=== PATIENT | male | born 1945 | race Caucasian/White ===

== ENCOUNTER 2016-08-09 09:14 | Emergency (ER) | payer MEDICARE, BC ==
[2016-08-09] MEDS ORDERED: Labetalol IV* 5 MG/ML 20 ML VIAL IV PUSH ONE (09:55)
[2016-08-09 10:06] LABS: Hematocrit 47 % (42-52); Hemoglobin 15.8 g/dl (14.0-18.0); Mean Corpuscular HGB Conc 33 g/dl (31-36); Mean Corpuscular Hemoglobin 33 pg (27-31); Mean Corpuscular Volume 98 fL (80-94); Mean Platelet Volume 9 um3 (7.4-10.4); Red Blood Count 4.82 10^6/ul (4.0-5.4); Red Cell Distribution Width 14 % (10.5-15); White Blood Count 3.6 10^3/ul (3.5-10.8)
[2016-08-09 10:17] LABS: Albumin 4.1 g/dL (3.2-5.2); BUN/Creatinine Ratio 12.6 (8-20); Calcium 9.3 mg/dL (8.6-10.3); EGFR African American 83.7 (>60); EGFR Non-African American 65.1 (>60); Total Bilirubin 1.4 mg/dL (0.2-1.0); Total Protein 7.1 g/dL (6.4-8.9)
[2016-08-09 10:20] LABS: Troponin I 0.01 ng/mL (<0.04)
--- NOTE | 2016-08-09 10:43 | RAD ---
INDICATION: Hypertension and headache COMPARISON: None. TECHNIQUE: Contiguous axial sections of the brain were obtained from the skull base to the vertex without contrast. FINDINGS: The ventricles, cisterns and sulci exhibit symmetric involutional changes appropriate for the patient's age. There is mild periventricular and subcortical white matter hypoattenuation most consistent with chronic microvascular disease.. The ortega-white matter differentiation is adequately maintained and there is no sulcal effacement. No significant focal abnormality or mass effect is present. There is no evidence for intracranial hemorrhage. No significant focal osseous abnormality is present. The visualized portion of the paranasal sinuses and mastoid air cells appear clear. IMPRESSION: No CT evidence of acute intracranial abnormality.
--- NOTE | 2016-08-09 10:47 | RAD ---
INDICATION: Hypertension COMPARISON: CT of the chest December 17, 2014 TECHNIQUE: Single AP portable view of the chest was obtained. FINDINGS: Image quality is compromised due to the relative inferiority of a portable chest x-ray. Postsurgical changes include surgical clips overlying the left axilla, a left upper chest cardiac pacemaker with 2 leads overlying the heart and sternotomy wires. The heart and mediastinum exhibit normal size and contour. In the AP view the lungs appear hyperaerated. The lungs are otherwise clear. There is no evidence of a large pleural effusion. Visualized bones are normal for the patient's age. IMPRESSION: Stable chronic findings as described above without radiographic evidence of acute cardiopulmonary abnormality.
[2016-08-09 11:18] LABS: Digoxin 1.8 ng/ml (0.8-2.0)
[2016-08-09] MEDS ORDERED: amLODIPine TAB* 5 MG PO ONE (12:17)
[2016-08-09 12:53] VITALS: BP 166/90
--- NOTE | 2016-08-09 18:31 | ED ---
I, Ravi,Gina, scribed for Gómez Frausto MD on 08/09/16 at 0955 . Hypertension - HPI Summary HPI Summary: This 71 y/o male presents to ED for hypertensive episode this morning. Pt reports systolic blood pressure of 240 this morning, and he is noted with 183 systolic at time of initial evaluation. Pt recently had his lisinopril increased from 10 mg qd to 20 mg bid in June 2016. Positive mild CASH. Negative calf edema. Pt recently traveled from [place] to [facility]. PMHx is significant for HTN, cardiac tumor s/p removal, afib with pacemaker in place, and renal agenesis. He is currently on digoxin, warfarin, sotalol, furosemide, and allopurinol. - History of Current Complaint Chief Complaint: EDHypertension Stated Complaint: HIGH BP Hx Obtained From: Patient Onset/Duration: Started Hours Ago, Atraumatic, Still Present Timing: Constant Aggravating Factor(s): Nothing Alleviating Factor(s): Nothing Associated Signs & Symptoms: Headaches - Allergies/Home Medications Allergies/Adverse Reactions: Allergies Allergy/AdvReac Type Severity Reaction Status Date / Time No Known Allergies Allergy Verified 08/09/16 09:15 Home Medications: Home Medications Furosemide TAB* [Lasix TAB*] 20 mg PO DAILY 08/09/16 [History Confirmed 08/09/16 ] Potassium Chlor TAB* [Klor Con ER TAB*] 10 meq PO DAILY 08/09/16 [History Confirmed 08/09/16] PMH/Surg Hx/FS Hx/Imm Hx Cardiovascular History: Reports: Hx Congestive Heart Failure - dx last 05/2013, Hx Hypertension, Hx Pacemaker/ICD - [employer] [place] IN [place], 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 , 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, 1994, Other Cardiovascular Problems/Disorders - A FIB Respiratory History: Denies: Other Respiratory Problems/Disorders GI History: Reports: Hx Gastroesophageal Reflux Disease, Hx Ulcer - LONG AGO Denies: Other GI Disorders History: Reports: Hx Renal Disease - congenital 1 kidney Denies: Other Problems/Disorders Musculoskeletal History: Reports: Hx Arthritis - ALL OVER, Other Musculoskeletal History - see surgeries Sensory History: Reports: Hx Cataracts - JONO, Hx Contacts or Glasses - GLASSES, Hx Glaucoma Denies: Hx Hearing Aid Opthamlomology History: Reports: Hx Cataracts - JONO, Hx Contacts or Glasses - GLASSES, Hx Glaucoma Neurological History: Reports: Hx Migraine - IN THE PAST Denies: Other Neuro Impairments/Disorders - Surgical History Surgery Procedure, Year, and Place: benign cardiac tumor 1998, exploratory left lung 1997,benign mass neck, right hip and right leg fx. pacemaker, Hx Anesthesia Reactions: Yes - WENT INTO [facility]F DURING SURGERY Infectious Disease History: No Infectious Disease History: Denies: Traveled Outside the [place] in Last 30 Days - Family History Known Family History: Negative: Other - advserse - Social History Alcohol Use: Daily Alcohol Amount: 4 BEERS PER DAY Hx Substance Use: No Substance Use Type: Reports: None Hx Tobacco Use: Yes Smoking Status (MU): Former Smoker Amount Used/How Often: 2-3 PACKS A DAY Have You Smoked in the Last Year: No Review of Systems Negative: Fever Positive: Other - Positive hypertensive episode, still present. Negative: Chest Pain Positive: Headache All Other Systems Reviewed And Are Negative: Yes Physical Exam - Summary Physical Exam Summary: The patient is well-nourished in no acute distress and in no acute pain. The skin is warm and dry and skin color reflects adequate perfusion. HEENT: The head is normocephalic and atraumatic. The pupils are equal and reactive. The conjunctivae are clear and without drainage. Nares are patent and without drainage. Mouth reveals moist mucous membranes and the throat is without erythema and exudate. The external ears are intact. The ear canals are patent and without drainage. The tympanic membranes are intact. Neck is supple with full range of motion and non-tender. There are no carotid bruits. There is no neck vein distension. Respiratory: Chest is non-tender. Lungs are clear to auscultation and breath sounds are symmetrical and equal. No wheezing. Cardiovascular: Bradycardic. There is no murmur or rub auscultated. There is no peripheral edema and pulses are symmetrical and equal. Abdomen: The abdomen is soft and non-tender. There are normal bowel sounds heard in all four quadrants and there is no organomegaly palpated. Musculoskeletal: There is no back pain noted. Extremities are non-tender with full range of motion. There is good capillary refill. There is slight peripheral edema or calf tenderness elicited. Neurological: Patient is alert and oriented to person, place and time. The patient has symmetrical motor strength in all four extremities. Cranial nerves are grossly intact. Deep tendon reflexes are symmetrical and equal in all four extremities. Psychiatric: The patient has an appropriate affect and does not exhibit any anxiety or depression. Triage Information Reviewed: Yes Vital Signs On Initial Exam: Initial Vitals Temp Pulse Resp BP Pulse Ox 97.2 F 59 16 225/100 98 08/09/16 09:17 08/09/16 09:17 08/09/16 09:17 08/09/16 09:17 08/09/16 09:17 Vital Signs Reviewed: Yes - [place] Coma Scale Coma Scale Total: 15 Diagnostics - Vital Signs Vital Signs Temp Pulse Resp BP Pulse Ox 08/09/16 09:17 97.2 F 59 16 225/100 98 - Laboratory Lab Results: Lab Results 08/09/16 08/09/16 08/09/16 Range/Units 09:45 09:45 09:45 WBC 3.6 (3.5-10.8) 10^3/ul RBC 4.82 (4.0-5.4) 10^6/ul Hgb 15.8 (14.0-18.0) g/dl Hct 47 (42-52) % MCV 98 H (80-94) fL MCH 33 H (27-31) pg MCHC 33 (31-36) g/dl RDW 14 (10.5-15) % Plt Count 109 L (150-450) 10^3/ul MPV 9 (7.4-10.4) um3 Neut % (Auto) 63.4 (38-83) % Lymph % (Auto) 22.5 L (25-47) % [place] % (Auto) 10.6 H (1-9) % Eos % (Auto) 3.2 (0-6) % Baso % (Auto) 0.3 (0-2) % Absolute Neuts (auto) 2.3 (1.5-7.7) 10^3/ul Absolute Lymphs (auto) 0.8 L (1.0-4.8) 10^3/ul Absolute Monos (auto) 0.4 (0-0.8) 10^3/ul Absolute Eos (auto) 0.1 (0-0.6) 10^3/ul Absolute Basos (auto) 0 (0-0.2) 10^3/ul Absolute Nucleated RBC 0 10^3/ul Nucleated RBC % 0.1 INR (Anticoag Therapy) (0.89-1.11) APTT (26.0-36.3) seconds Sodium 139 (133-145) mmol/L Potassium 4.0 (3.5-5.0) mmol/L Chloride 102 (101-111) mmol/L Carbon Dioxide 31 (22-32) mmol/L Anion Gap 6 (2-11) mmol/L BUN 14 (6-24) mg/dL Creatinine 1.11 (0.67-1.17) mg/dL Est GFR ( Amer) 83.7 (>60) Est GFR (Non-Af Amer) 65.1 (>60) BUN/Creatinine Ratio 12.6 (8-20) Glucose 121 H (70-100) mg/dL Lactic Acid 0.9 (0.5-2.0) mmol/L Calcium 9.3 (8.6-10.3) mg/dL Total Bilirubin 1.40 H (0.2-1.0) mg/dL AST 22 (13-39) U/L ALT 17 (7-52) U/L Alkaline Phosphatase 60 (34-104) U/L Troponin I 0.01 (<0.04) ng/mL B-Natriuretic Peptide ( - 100) pg/mL Total Protein 7.1 (6.4-8.9) g/dL Albumin 4.1 (3.2-5.2) g/dL Globulin 3.0 (2-4) g/dL Albumin/Globulin Ratio 1.4 (1-3) Digoxin 1.8 (0.8-2.0) ng/ml 08/09/16 08/09/16 Range/Units 09:45 09:45 WBC (3.5-10.8) 10^3/ul RBC (4.0-5.4) 10^6/ul Hgb (14.0-18.0) g/dl Hct (42-52) % MCV (80-94) fL MCH (27-31) pg MCHC (31-36) g/dl RDW (10.5-15) % Plt Count (150-450) 10^3/ul MPV (7.4-10.4) um3 Neut % (Auto) (38-83) % Lymph % (Auto) (25-47) % King[place] % (Auto) (1-9) % Eos % (Auto) (0-6) % Baso % (Auto) (0-2) % Absolute Neuts (auto) (1.5-7.7) 10^3/ul Absolute Lymphs (auto) (1.0-4.8) 10^3/ul Absolute Monos (auto) (0-0.8) 10^3/ul Absolute Eos (auto) (0-0.6) 10^3/ul Absolute Basos (auto) (0-0.2) 10^3/ul Absolute Nucleated RBC 10^3/ul Nucleated RBC % INR (Anticoag Therapy) 2.13 H (0.89-1.11) APTT 42.9 H (26.0-36.3) seconds Sodium (133-145) mmol/L Potassium (3.5-5.0) mmol/L Chloride (101-111) mmol/L Carbon Dioxide (22-32) mmol/L Anion Gap (2-11) mmol/L BUN (6-24) mg/dL Creatinine (0.67-1.17) mg/dL Est GFR ( Amer) (>60) Est GFR (Non-Af Amer) (>60) BUN/Creatinine Ratio (8-20) Glucose (70-100) mg/dL Lactic Acid (0.5-2.0) mmol/L Calcium (8.6-10.3) mg/dL Total Bilirubin (0.2-1.0) mg/dL AST (13-39) U/L ALT (7-52) U/L Alkaline Phosphatase (34-104) U/L Troponin I (<0.04) ng/mL B-Natriuretic Peptide 72 ( - 100) pg/mL Total Protein (6.4-8.9) g/dL Albumin (3.2-5.2) g/dL Globulin (2-4) g/dL Albumin/Globulin Ratio (1-3) Digoxin (0.8-2.0) ng/ml Result Diagrams: 08/09/16 09:45 08/09/16 09:45 Lab Statement: Any lab studies that have been ordered have been reviewed, and results considered in the medical decision making process. - Radiology CXR Xray Interpretation: No Acute Changes - Stable chronic findings as described above (Postsurgical changes include surgical clips overlying the left axilla, a left upper chest cardiac pacemaker with 2 leads overlying the heart and sternotomy wires) without radiographic evidence of acute cardiopulmonary abnormality. Radiology Interpretation Completed By: Radiologist - CT Brain CT Interpretation: No Acute Changes CT Interpretation Completed By: Radiologist - EKG 0926 Cardiac Rate: Other Rate - atrial paced rhythm at 60 bpm Re-Evaluation - Re-Evaluation First Eval Re-Evaluation Time: 12:12 Comment: Bloodworks and imaging results are discussed with pt and present at bedside. Blood pressure improved. CASH is resolved. Admission was offered to pt in order to get the BP under control, but pt expresses desire to go home. Hypertension Course/Dx - Course Assessment/Plan: This 71 y/o male presents to ED for acute hypertensive episode this morning. PMHx is signficant for known HTN. Pt recently had his lisinopril dose increased from 10 mg qd to 20 mg bid. Pt was noted with blood pressure of 183 systolic pressure at time of initial evaluation and was symptomatically treated with labetalol. Pt also c/o mild CASH. CXR and CT Brain were indicated normal. Blood work was wnl with total bilirubin of 1.40 and digoxin of 1.8. Pt was discharged with outpatient f/u. pt. is to continue with Lisinopril 20mg bid and lasix 20 mg daily. norvasc 10 mg po daily was added to regimine. - Diagnoses Differential Diagnosis/HQI PQRI: Angina, Cerebral Bleed, Hypertensive Urgency, Renal Disease Provider Diagnoses: Hypertensive urgency - Critical Care Time Critical Care Time: 30-74 min Discharge - Discharge Plan Condition: Stable Disposition: HOME Prescriptions: Amlodipine Besylate [Norvasc 10 mg tab] 10 mg PO DAILY #30 tab Patient Education Materials: Hypertension (ED), Amlodipine (By mouth) Referrals: Jody Delacruz MD [Medical Doctor] - 2 Days Additional Instructions: Please continue with your furosemide and lisinopril as instructed. The documentation as recorded by the Ravi crawford Soohyun accurately reflects the service I personally performed and the decisions made by me, Gómez Frausto MD.
== END 2016-08-09 12:53 | disposition home or self-care (01) ==
LOC: ED 09:14
DX: I16.0 Hypertensive urgency (principal); R51 Headache; Z87.891 Personal history of nicotine dependence
CPT/HCPCS: 36415; 70450; 71010; 80053; 80162; 83605; 83880; 84484; 85025; 85610; 85730; 93005; 96374; 99283; A9270-GY

== ENCOUNTER 2016-09-02 16:41 | Observation (INO) | payer MEDICARE, BC ==
--- NOTE | 2016-09-02 17:41 | RAD ---
INDICATION: Chest pain COMPARISON: Chest x-ray August 09, 2016 TECHNIQUE: An AP portable view obtained at 10 1040 hours is submitted. FINDINGS: Bones/Soft Tissues: There are no acute bony findings. There is left-sided cardiac pacemaker. There are sternotomy. Cardiomediastinal: The cardiomediastinal silhouette is normal. Lungs: There are no acute infiltrates. There is hyperinflation with mild chronic interstitial changes. Pleura: There are no pleural effusions. Other: None IMPRESSION: NO ACTIVE DISEASE. HYPERINFLATION. POSTSURGICAL CHANGE
[2016-09-02 17:56] LABS: ALT 20 U/L (7-52); Albumin 4.9 g/dL (3.2-5.2); Alkaline Phosphatase 76 U/L (34-104); BUN/Creatinine Ratio 13.5 (8-20); Blood Urea Nitrogen 18 mg/dL (6-24); C Reactive Protein 21.72 mg/L (< 5.00); CO2 Carbon Dioxide 30 mmol/L (22-32); Calcium 10.1 mg/dL (8.6-10.3); Chloride 101 mmol/L (101-111); Creatine Kinase 70 U/L (10-223); EGFR Non-African American 52.9 (>60); Globulin 3.8 g/dL (2-4); Glucose 94 mg/dL (70-100); Lipase 247 U/L (11.0-82.0); Sodium 138 mmol/L (133-145); Total Protein 8.7 g/dL (6.4-8.9)
[2016-09-02 17:57] LABS: Troponin I 0.01 ng/mL (<0.04)
[2016-09-02 18:15] LABS: TSH (Thyroid Stimulating Horm) 2.25 mcIU/mL (0.34-5.60)
--- NOTE | 2016-09-02 18:24 | ADMNOTE ---
Subjective Date of Service: 09/02/16 Interval History: ADMISSION HISTORY AND PHYSICAL EXAM: Allergies Allergy/AdvReac Type Severity Reaction Status Date / Time No Known Allergies Allergy Verified 08/09/16 09:15 Home Medications Medication Instructions Recorded Confirmed Type Digoxin TAB* 125 mcg PO DAILY 08/03/13 08/09/16 History Lisinopril TAB* 10 mg PO BID 08/03/13 08/09/16 History Sotalol TAB* 120 mg PO BID 08/03/13 08/09/16 History Travatan Z 0.004% OPTH (NF) 1 drop BOTH EYES BEDTIME 08/03/13 08/09/16 History Warfarin TAB(*) 3 mg PO DAILY 08/03/13 08/09/16 History Allopurinol TAB* 300 mg PO DAILY 01/11/14 08/09/16 History Amlodipine Besylate [Norvasc 10 mg 10 mg PO DAILY #30 tab 08/09/16 Rx tab] Furosemide TAB* [Lasix TAB*] 20 mg PO DAILY 08/09/16 08/09/16 History Potassium Chlor TAB* [Klor Con ER 10 meq PO DAILY 08/09/16 08/09/16 History TAB*] HPI: The patient has had chest pain for 2-3 months. It seems to be very positional. 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 He just got her from [place]. When he rode a bicycle in [place] he did not get chest pain. 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 Quit smoking 13 yrs ago. 2-4 alcoholic drinks per day 2 children. Lives with his who is his SDM. 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 Kumar, . Review of Systems - Measurements Intake and Output: Intake and Output Last 24 Hours 08/31/16 09/01/16 09/02/16 09/03/16 06:59 06:59 06:59 06:59 Weight 181 lb - Review of Systems Constitutional Symptoms: Negative: Weight Gain, Weight Loss, Weakness, Fatigue, Fever, Night Sweats, Unexplained Falls, Other Dermatology: Positive: Normal HEENT: Positive: Normal Eyes: Positive: Glaucoma Thyroid: Positive: Normal Pulmonary: Positive: Normal Cardiology: Positive: Chest Pain Gastroenterology: Positive: Normal Genital - Urinary: Positive: Normal Musculoskeletal: Negative: Joint Pain, Joint Stiffness, Arthritis, Osteoporosis, Low Back Pain , Sciatica, Joint Deformities, Kyphoscoliosis, Other Endocrinology: Positive: Normal Hematologic/Lymphatic: Negative: Anemia, Easy Brusing, Hx Leukemia, Hx Lymphoma, Use of Anticoagulant, Use of Antiplatelet Drugs, Other Neurology: Positive: Normal Psychiatry: Positive: Normal Allergic/Immunologic: Negative: Hx Anaphylaxis, Hx Angioedema, Hx Environmental, Hx Seasonal, Athsma, Hx HIV, Immunocompromise, Swollen Glands LymphNodes, Other Objective Active Medications: Sodium Chloride (Ns 0.9% 1000 Ml*) 1,000 mls @ 150 mls/hr IV PER RATE JED Vital Signs 09/02/16 09/02/16 16:48 17:20 Temperature 97.6 F 97.7 F Pulse Rate 60 60 Respiratory 18 16 Rate Blood Pressure 157/66 145/63 (mmHg) O2 Sat by Pulse 100 97 Oximetry Oxygen Devices in Use Now: Nasal Cannula Appearance: Alert, partly up on ED stretcher. In good spirits. Looks comfortable. Eyes: No Scleral Icterus, - - mod erythema both eyes, pt states due to eye drops and is chronic. Ears/Nose/Mouth/Throat: Clear Oropharnyx, Mucous Membranes Moist Neck: No Thyroid Enlargement, Masses, - - large jugular veins BL when talking. Respiratory: Symmetrical Chest Expansion and Respiratory Effort, Clear to Auscultation, Clear to Percussion Cardiovascular: NL Sounds; No Murmurs; No JVD, RRR, No Edema, - Abdominal: NL Sounds; No Tenderness; No Distention, No Hepatosplenomegaly, - Extremities: No Edema, No Clubbing, Cyanosis, - Skin: No Rash or Ulcers, No Nodules or Sclerosis, - Neurological: Alert and Oriented x 3, NL Sensation Result Diagrams: 09/02/16 18:30 09/02/16 18:30 Assess/Plan/Problems-Billing Assessment: - Patient Problems (1) Chest pain Current Visit: Yes Status: Acute Code(s): R07.9 - CHEST PAIN, UNSPECIFIED SNOMED Code(s): 20909958 Comment: Second troponin wnl. MICK negative. CT chest showed atelectasis and scarring SHARLENE, stable density R base. Discussed with Dr. Cantu. (2) Atrial fibrillation Current Visit: Yes Status: Acute Code(s): I48.91 - UNSPECIFIED ATRIAL FIBRILLATION SNOMED Code(s): 81011123 Comment: Continue sotalol. Resume warfarin. (3) Cancer Current Visit: Yes Status: Acute Code(s): C80.1 - MALIGNANT (PRIMARY) NEOPLASM, UNSPECIFIED SNOMED Code(s): 505065322 Comment: Dr. Kumar's office fax'e me the path reports from his L breast bx and L sentinel node resection. 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 Pt advised to call Dr. Dalton for appt. He has seen Dr. Dalton in past, ? malignancy, had gamma knife tx, PET scans. (4) Glaucoma Current Visit: Yes Status: Acute Code(s): H40.9 - UNSPECIFIED GLAUCOMA SNOMED Code(s): 11046033 Comment: Continue home eye drops. (5) Solitary kidney, congenital Current Visit: Yes Status: Acute Code(s): Q60.0 - RENAL AGENESIS, UNILATERAL SNOMED Code(s): 33362250 Comment: Dx noted.
[2016-09-02 18:38] LABS: Hematocrit 53 % (42-52); Hemoglobin 17.6 g/dl (14.0-18.0); Mean Corpuscular HGB Conc 34 g/dl (31-36); Mean Corpuscular Hemoglobin 33 pg (27-31); Mean Corpuscular Volume 99 fL (80-94); Mean Platelet Volume 9 um3 (7.4-10.4); Red Blood Count 5.32 10^6/ul (4.0-5.4); Red Cell Distribution Width 15 % (10.5-15); White Blood Count 6.8 10^3/ul (3.5-10.8)
[2016-09-02 20:41] LABS: Urine Bacteria Absent (Absent); Urine Bilirubin Negative (Negative); Urine Glucose Negative (Negative); Urine Nitrite Negative (Negative)
[2016-09-02] MEDS ORDERED: Latanoprost 0.005%* 2.5 ml BTL BOTH EYES SCH (21:00)
[2016-09-02] MEDS: Lisinopril TAB* 10 MG PO SCH (23:50)
[2016-09-02] MEDS: Brimonidine P 0.15%(NF) OPH SOL 5 ML BTL BOTH EYES SCH (23:54)
[2016-09-03] MEDS: NS 0.9% 1000 ML* 1,000 ML IV SCH ×2 (00:36→07:20)
[2016-09-03] MEDS ORDERED: Potassium Chlor TAB* 10 MEQ TAB.ER PO SCH (08:30)
[2016-09-03] MEDS ORDERED: Digoxin TAB* 0.125 MG PO SCH (09:00)
[2016-09-03] MEDS ORDERED: Allopurinol TAB* 300 MG PO SCH (09:00)
[2016-09-03] MEDS ORDERED: Sotalol TAB* 80 MG PO SCH (09:00)
[2016-09-03] MEDS ORDERED: Furosemide TAB* 20 MG PO SCH (09:00)
[2016-09-03] MEDS ORDERED: Iodixanol* (CONTRAST) 320 MG/ML 100 ML SDV IV ONE (11:12)
[2016-09-03] MEDS: Brimonidine P 0.15%(NF) OPH SOL 5 ML BTL BOTH EYES SCH ×2 (11:14→14:21)
--- NOTE | 2016-09-03 12:01 | RAD ---
HISTORY: Chest pain, history of atrial myxoma COMPARISONS: December 17, 2014 TECHNIQUE: Multiple contiguous axial CT scans of the chest were obtained with and without intravenous contrast. Coronal and sagittal multiplanar reformations are also submitted for review. FINDINGS: NECK AND THYROID: The lower neck and thyroid are unremarkable. CHEST WALL: A left-sided pacemaker is noted. There is post surgical change to the left axilla HEART AND PERICARDIUM: The heart is unremarkable. The atrial myxoma noted in history is not evident on the current examination. AORTA AND PULMONARY VASCULATURE: The aorta and pulmonary vasculature are normal. MEDIASTINUM: There is no mediastinal lymphadenopathy by size criteria. PRETTY: There is no hilar lymphadenopathy by size criteria. AIRWAY AND ESOPHAGUS: The airway is unremarkable, without endobronchial filling defect. The esophagus is grossly normal. LUNG PARENCHYMA: There is persistent linear opacification of the left upper lobe which likely reflects further atelectasis and pleural parenchymal scarring. There is a stable rounded density of the right lung base that may represent rounded atelectasis. PLEURA: No pleural abnormalities are noted. UPPER ABDOMEN: The upper abdomen is unremarkable. BONES AND SOFT TISSUES: Degenerative changes are noted. The patient is status post median sternotomy. OTHER: None. IMPRESSION: 1. PROGRESSIVE ATELECTASIS AND PLEUROPARENCHYMAL SCARRING OF THE LEFT UPPER LOBE. 2. STABLE ROUNDED DENSITY OF THE RIGHT LUNG BASE WHICH MAY REPRESENT ROUNDED ATELECTASIS
--- NOTE | 2016-09-03 12:25 | CONS ---
CC: Dr. Akers, Hospitalist Service; Dr. Cantu; Dr. Delacruz CARDIOLOGY CONSULT: DATE OF CONSULT: 09/03/16 PRIMARY CARE PHYSICIAN: Dr. Delacruz. HISTORY OF PRESENT ILLNESS: I was asked by the Hospitalist Service to see this 71- year-old male kavitha denise who had a history of myxoma in 1994, he had surgery done in [place]. He had a history of at rial fibrillation, permanent pacemaker implantation, done in [place]. He has been on Coumadin and a lso sotalol. The patient had full cardiac evaluation in [place] before he came here for his [facility] including chemical nuclear stress test, was told "normal." A transthoracic echocardiogram, I do not have that immediately available to me. He had been having atypical vague symptoms of some ches t pain, shortness of breath, positional in nature, pleuritic, and some musculoskeletal components. Kale lambert is very active bicycling in [place] without any limiting symptom according to him. He gives no fe issa, no nausea, no vomiting, no hematochezia, no skin rash, no abdominal pain, no syncope, no swelli ng of the lower extremities, no orthopnea, no PND is appreciated. He gives no history of diabetes m ellitus. He does have a history of hypertension, he is on medical treatment for that. He gives no history of hyperlipidemia. He had 2 troponins that were negative and he describes his pains when he leans actually forward and goes to the left side position with symptoms positional in nature. He g edilberto no history of myocardial infarction or coronary artery disease. No history of congestive heart failure. His review of all other systems essentially is negative. PAST MEDICAL HISTORY: As outlined above. PAST SURGICAL HISTORY: He does have a history of right hip arthroplasty, right leg ORIF with plates and screws, bilateral cataract surgery, glaucoma, left breast mass surgery. ALLERGIES: He has no known drug allergies. MEDICATIONS: As an outpatient include: 1. Digoxin 0.125 mg daily. 2. Lisinopril 10 mg daily. 3. Sotalol 120 mg twice a day. 4. Coumadin 3 mg daily. 5. Allopurinol 300 mg daily. 6. Amlodipine 10 mg daily. 7. Lasix 20 mg daily. 8. Potassium 10 mEq daily. His medications as an inpatient include: 1. Allopurinol 300 mg daily. 2. Digoxin 0.125 mg daily. 3. Lasix 20 mg daily. 4. Lisinopril 10 mg twice a day. 5. Potassium 10 mEq daily. 6. Sotalol 120 mg daily. FAMILY HISTORY: There is no family history of premature coronary artery disease. 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 He used to smoke, he quit about 13 years ago. He drinks 2 to 4 drinks per day alcohol. He lives with his . REVIEW OF SYSTEMS: His review of all other systems essentially is negative. PHYSICAL EXAM: On exam, he is awake, alert, and oriented. He is not in acute distress. His vitals include blood pressure 145/79, oxygen saturation 97%, temperature 98.0, pulse 66, respiratory rate 17. Head and neck exam: Normocephalic, atraumatic head. Ears, nose, and throat: Essentially benig n. Neck: Supple. JVP is not elevated. No carotid bruits. No masses in the neck is appreciated. C hest: Clear to auscultation. No rales, no wheeze, no added sounds appreciated. Heart: Normal. S 1, S2. No added sounds. No gallops. No rubs. Abdomen: Benign, soft. Positive bowel sounds. Extre mities: No edema, no cyanosis, and no clubbing. Skin: Normal. Psych: Normal affect and mood. SERVICER : No focal deficits appreciated. DIAGNOSTIC STUDIES/LAB DATA: White blood cell 6.8, hemoglobin 17.6, hematocrit 53, and platelet 172 . His chemistry showed sodium is 138, potassium 4, chloride 101, total CO2 is 30, BUN 18, creatinin e 1.33. His LFTs are normal. His troponin 0.01. His CK is 70, CK-MB 2.3. BNP 55. TSH 2.25. His EKG that was done on the showed him to be in atrial fibrillation, nondiagnostic RSR in V1, nonspecific T abnormality appreciated. IMPRESSION: The patient is a 71-year-old male patient with: 1. Presentation with a few months' symptoms of atypical chest pain, positional in nature, shortness of breath, to be further evaluated. 2. History of myxoma with surgery in 1994. 3. History of atrial fibrillation and permanent pacemaker implantation in [place]. 4. Systemic arterial hypertension. 5. Abnormal EKG as described. 6. The patient was evaluated in [place] by [employer] nuclear stress test, was told to be nor mal. PLAN: At the present time, a transesophageal echocardiography, I agree, is appropriate to evaluate for his history of myxoma and if there is any evidence of recurrence for his myxoma. Other evaluati on as per hospitalist service, Dr. Akers, which I discussed with him. A CT scan might be appropria te to evaluate his symptoms as well. Continue medical management as you are already doing for him. We will evaluate reports from [place]. I answered all his concerns and questions up to his satisfac tion. Thank you very much for asking us to participate in the care of this patient. TIME SPENT: More than half of at least 60-65 plus minutes was in the education and counselling mode , evaluating him and answering all his concerns and making medical decisions accordingly. [id number]/[facility] #: [id number]
[2016-09-03] MEDS ORDERED: Lidocaine 2% VISCOUS* 15 ML UDC ONE (12:47)
[2016-09-03] MEDS ORDERED: Naloxone* 0.4 MG/ML 1 ML VIAL ONE (12:47)
[2016-09-03] MEDS ORDERED: Flumazenil* 0.1 MG/ML 5 ML MDV ONE (12:47)
[2016-09-03] MEDS ORDERED: fentaNYL* 50 MCG/ML 2 ML VIAL (100 MCG VIAL) ONE (12:47)
[2016-09-03] MEDS ORDERED: Midazolam* 1 MG/ML 5 ML VIAL (5 MG) ONE (12:47)
--- NOTE | 2016-09-03 14:23 | TEE ---
Patient: FRANCO NGUYEN [facility] Rec#: [id number] : 1945 Date: 09/03/2016 Age: 71y Height: 173 cm / 68.1 in Weight: 82 kg / 180.7 lbs Sex: M BSA: 1.96 Room#: 447 Admit Date#: 09/02/2016 Type: Inpatient Referring: Oz Akers MD Performing: Franco Cantu MD Reading: Franco Cantu MD Personal Injury Attorney: Viki Mcclelland,RDCS,RDMS Nurse: Rayne Haines RN Transesophageal Echocardiogram Indication: CP BP: 128/57 HR: 73 Rhythm: NSR Findings History: Atrial myxoma (resected), Afib, HTN, HLD. Technical Comments: The study quality is good. Left Ventricle: The left ventricular chamber size is normal. Mild concentric left ventricular hypertrophy is observed. The estimated ejection fraction is 55-60%. Left Atrium: The left atrium is slightly dilated. No mass is visualized within the left atrium. There is no thrombus visualized in the left atrial appendage. Right Ventricle: The right ventricular chamber size and systolic function are within normal limits. A pacemaker wire is visualized in the right ventricle. Right Atrium: The right atrial cavity size is normal. A pacemaker wire is visualized in the right atrium. A patent foramen ovale is not demonstrated by color Doppler. Aortic Valve: The aortic valve is trileaflet. There is no evidence of aortic valve thickening. Systolic excursion of the aortic valve is normal. There is a trace of aortic regurgitation. There is no evidence of aortic stenosis. Mitral Valve: The mitral valve leaflets appear normal. There is trace to mild mitral regurgitation. There is no evidence of mitral stenosis. Tricuspid Valve: The tricuspid valve leaflets are normal. There is trace tricuspid regurgitation. Pulmonic Valve: The pulmonic valve appears normal. There is a trace pulmonic regurgitation. Pericardium: There is no significant pericardial effusion. Aorta: There is mild dilatation of the aortic root. There is plaque visualized in the descending aorta.Mild-moderate Pulmonary Artery: The main pulmonary artery appears normal. Venous: The inferior vena cava appears normal. The flow pattern of the pulmonary veins appear normal. The superior vena cava appears normal. MICK Procedures: All standard views were attempted within the limitations of patient tolerance and safety. History and physical as well as labs were reviewed. The patient was in a fasting state. Risks and benefits of the procedure, including alternatives, were discussed and written informed consent was obtained. The patient and/or their health care field sales representative expressed understanding of the procedure, risks and benefits. Baseline and continuous monitoring of blood pressure, heart rate, pulse oximetry and heart rhythm was performed throughout the procedure. The appropriate time-out procedure was performed as per [facility] protocol. The patient was placed in the left lateral decubitus position. The patient's posterior pharynx was anesthetized with 20ml of 2% viscous lidocaine. The patient received IV Midazolam with a total dose of 5 mg The patient received IV Fentanyl with a total dose of 50 mcg. An oral bite block was inserted for protection of oral dentition. The multiplane transesophageal echocardiogram probe was inserted through the posterior oropharynx and advanced into the esophagus without difficulty. Multiple 2D images were obtained of the heart and its related structures. Color flow Doppler was used for evaluation. Spectral Doppler was also used. The atrial septum was interrogated with color flow Doppler. At the conclusion of the procedure the probe was removed with continuous suction without complications. The patient tolerated the procedure with no apparent complications. Contrast: Intravenous agitated saline contrast was used to assess intracardiac shunting. Bubble study was nondiagnostic possibly due to the presence of pacemaker wires. Conclusions The left ventricular chamber size is normal. Mild concentric left ventricular hypertrophy is observed. The estimated ejection fraction is 55-60%. No mass is visualized within the left atrium. There is no thrombus visualized in the left atrial appendage. A pacemaker wire is visualized in the right ventricle. A pacemaker wire is visualized in the right atrium. A patent foramen ovale is not demonstrated by color Doppler. There is a trace of aortic regurgitation. There is trace to mild mitral regurgitation. There is trace tricuspid regurgitation. There is a trace pulmonic regurgitation. There is mild dilatation of the aortic root. There is plaque visualized in the descending aorta.Mild-moderate Measurements Name Value Normal Range Aortic Annulus 2 cm (1.4 - 2.6) Ao root diameter (2D) 3.7 cm (2.1 - 3.5) Ascending Ao 3.6 cm (2.1 - 3.4)
[2016-09-03 14:38] VITALS: BP 111/75
--- NOTE | 2016-09-03 14:51 | DCNOTE ---
Subjective Date of Service: 09/03/16 Interval History: Mild pain near L breast surgical site. No other c/o. 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 Quit smoking 13 yrs ago. 2-4 alcoholic drinks per day 2 children. Lives with his who is his SDM. Past Medical History: Findings - Atrial myxoma surgery in [place] 1994, pacemaker in [place], R hip arthroplasty, R leg ORIF with plate & screws, BL cataract sx, glaucoma, L breast mass surgery & LN dissection by Dr. Kumar, . Objective Active Medications: Allopurinol (Zyloprim Tab*) 300 mg PO DAILY [facility] Brimonidine Tartrate (Alphagan P 0.15%(Nf)) 1 drop BOTH EYES BID [facility] Last Admin: 09/03/16 14:21 Dose: Not Given Digoxin (Lanoxin Tab*) 0.125 mg PO DAILY [facility] Furosemide (Lasix Tab*) 20 mg PO DAILY [facility] Sodium Chloride (Ns 0.9% 1000 Ml*) 1,000 mls @ 150 mls/hr IV PER RATE [facility] Last Admin: 09/03/16 07:20 Dose: 150 mls/hr Latanoprost (Xalatan 0.005%*) 1 drop BOTH EYES BEDTIME [facility] Last Admin: 09/02/16 23:54 Dose: Not Given Lisinopril (Prinivil Tab*) 10 mg PO BID [facility] Last Admin: 09/02/16 23:50 Dose: 10 mg Pharmacy Profile Note (Coumadin Daily Reminder*) 1 note FOLLOW UP 1700 [facility] Potassium Chloride (Klor Con Er Tab*) 10 meq PO DAILY WITH MEAL [facility] Sotalol HCl (Betapace Tab*) 120 mg PO DAILY [facility] Warfarin Sodium (Coumadin Tab(*)) 3 mg PO DAILY@1700 [facility] PRN Reason: Protocol Vital Signs 09/02/16 09/02/16 09/02/16 19:00 19:23 20:00 Temperature Pulse Rate 63 68 69 Respiratory 15 18 16 Rate Blood Pressure 140/69 143/79 (mmHg) O2 Sat by Pulse 95 93 94 Oximetry 09/02/16 09/02/16 09/02/16 20:19 21:22 23:42 Temperature 99.2 F 98.3 F 98.2 F Pulse Rate 60 63 Respiratory 16 20 Rate Blood Pressure 150/68 136/62 (mmHg) O2 Sat by Pulse 97 94 Oximetry 09/03/16 09/03/16 09/03/16 03:34 07:10 08:04 Temperature 98.6 F 98.0 F Pulse Rate 60 66 Respiratory 20 16 17 Rate Blood Pressure 128/57 145/79 (mmHg) O2 Sat by Pulse 99 97 Oximetry 09/03/16 09/03/16 11:16 14:05 Temperature 97.7 F 97.3 F Pulse Rate 59 65 Respiratory 16 14 Rate Blood Pressure 154/77 111/75 (mmHg) O2 Sat by Pulse 99 94 Oximetry Oxygen Devices in Use Now: None Appearance: Alert, supine in bed. In good spirits. Looks comfortable. Respiratory: Symmetrical Chest Expansion and Respiratory Effort, Clear to Auscultation, Clear to Percussion Cardiovascular: NL Sounds; No Murmurs; No JVD, RRR, No Edema, - Extremities: No Edema, No Clubbing, Cyanosis, - Skin: No Rash or Ulcers, No Nodules or Sclerosis, - Neurological: Alert and Oriented x 3, NL Sensation Result Diagrams: 09/02/16 18:30 09/02/16 18:30 Assess/Plan/Problems-Billing Assessment: - Patient Problems (1) Chest pain Current Visit: Yes Status: Acute Code(s): R07.9 - CHEST PAIN, UNSPECIFIED SNOMED Code(s): 62492400 Comment: Second troponin wnl. MICK negative. CT chest showed atelectasis and scarring SHARLENE, stable density R base. Discussed with Dr. Cantu. (2) Atrial fibrillation Current Visit: Yes Status: Acute Code(s): I48.91 - UNSPECIFIED ATRIAL FIBRILLATION SNOMED Code(s): 71684102 Comment: Continue sotalol. Resume warfarin. (3) Cancer Current Visit: Yes Status: Acute Code(s): C80.1 - MALIGNANT (PRIMARY) NEOPLASM, UNSPECIFIED SNOMED Code(s): 448501185 Comment: Dr. Kumar's office fax'e me the path reports from his L breast bx and L sentinel node resection. 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 Pt advised to call Dr. Dalton for appt. He has seen Dr. Dalton in past, ? malignancy, had gamma knife tx, PET scans. (4) Glaucoma Current Visit: Yes Status: Acute Code(s): H40.9 - UNSPECIFIED GLAUCOMA SNOMED Code(s): 44255287 Comment: Continue home eye drops. Status and Disposition: Discharge now. Fup Sha Albarran.
[2016-09-03] MEDS: Lisinopril TAB* 10 MG PO SCH (15:08)
[2016-09-03] MEDS ORDERED: Warfarin TAB(*) 3 MG PO SCH (17:00)
--- NOTE | 2016-09-04 05:44 | DS ---
DISCHARGE DIAGNOSIS: DATE OF ADMISSION: DATE OF DISCHARGE: 09/03/16 HISTORY: This 71-year-old man presented to the emergency room from Dr. Jody Delacruz's office. He had gone there for help with his chest pain of 2 to 3 months' duration. The patient stated the pain depended very much in what position he was in. It was harder when he stood up to cook or when he got up from a chair. However, when he was riding a bicycle in [place], he had no pain. There was no cough, shortness of breath, or other associated symptoms. The rest of the history is detailed in the admission note. The patient was admitted to the telemetry unit. He had troponins within normal limits. The patient stated the pain was, as far as he could tell, identical to the pains he had when he was diagnosed with atrial myxoma in 1994. He underwent MICK by Dr. Cantu, which was negative. He also had a CT scan of the chest which showed a stable density at the right base and atelectasis and scarring of the left upper lobe. These seemed to be incidental findings. I did obtain fax copies of the pathology reports from his left breast and left axillary node surgery in [place]. They showed he had DCIS of the left breast. The lymph nodes were negative. I advised the patient to see Dr. Dalton. He had seen Dr. Dalton in the past for, I believe, a malignancy. The patient, I believe , had Gamma Knife treatment and had 2 PET scans. I think most of the relevant records have probably originated in [place], but likely Dr. Dalton has copies of them. FINAL DIAGNOSES: 1. Atypical chest pain, uncertain etiology. 2. History of atrial fibrillation. 3. Ductal carcinoma in situ, left breast. 4. Glaucoma. 5. Congenital solitary kidney. DISCHARGE MEDICATIONS: 1. Warfarin 3 mg daily. 2. Sotalol 120 mg b.i.d. 3. Digoxin 0.125 mg daily. 4. Lisinopril 20 mg b.i.d. 5. Travoprost Z 0.004% one drop both eyes daily. 6. Allopurinol 300 mg daily. 7. Potassium 10 mEq daily. 8. Furosemide 20 mg daily. 9. Amlodipine 10 mg daily. 10. Brimonidine P 0.15% one drop both eyes b.i.d. CC: Dr. Jody Delacruz; Dr. Dalton* [id number]/[facility] #: [id number] [facility]
--- NOTE | 2016-09-05 14:38 | ED ---
Fernando Baez SooYoung, scribed for Tom Bronson MD on 09/02/16 at 1740 . HPI Chest Pain - HPI Summary HPI Summary: A 71 y/o M presents to ED with c/o intermittent, acute on chronic chest pressure /pain onset approx 6 months ago. Pt was mowing the lawn and unable to continue due to the pain today. Denies nausea, diaphoresis, pedal edema. Episodes only last approx 10 secs, and he rates the pain as 10 out of 10 when occurring. Aggravating factors: movement, activity. Pacemaker. Last stress test was in Mar 2016. Pt saw Dr. Delacruz last week as scheduled. Went in this afternoon due to the high BP and CP, because he didn't think he could wait until September to their scheduled appointment. Dr. Delacruz saw pt and recommended he go to ED. Pert PMHx : heart valve tumor. Pt on Warfarin. - History of Current Complaint Chief Complaint: EDChestPainROMI Time Seen by Provider: 09/02/16 17:15 Hx Obtained From: Patient Onset/Duration: Still Present Timing: Intermittent Current Severity: Mild Pain Intensity: 1 Pain Scale Used: 0-10 Numeric Chest Pain Radiates: Yes Chest Pain Radiates To:: Back - MILDLY Character: Pressure/Squeezing Aggravating Factor(s): Movement - AND ACTIVITY Associated Signs and Symptoms: Negative: Diaphoresis, Nausea, Edema - Allergy/Home Medications Allergies/Adverse Reactions: Allergies Allergy/AdvReac Type Severity Reaction Status Date / Time No Known Allergies Allergy Verified 08/09/16 09:15 PMH/Surg Hx/FS Hx/Imm Hx Previously Healthy: No Cardiovascular History: Reports: Hx Congestive Heart Failure - dx last 05/2013, Hx Hypertension, Hx Pacemaker/ICD - [employer] IN [place], [employer] , 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, 1994, Other Cardiovascular Problems/Disorders - A FIB Respiratory History: Denies: Other Respiratory Problems/Disorders GI History: Reports: Hx Gastroesophageal Reflux Disease, Hx Ulcer - LONG AGO Denies: Other GI Disorders History: Reports: Hx Renal Disease - congenital 1 kidney Denies: Other Problems/Disorders Musculoskeletal History: Reports: Hx Arthritis - ALL OVER, Other Musculoskeletal History - see surgeries Sensory History: Reports: Hx Cataracts - JONO, Hx Contacts or Glasses - GLASSES, Hx Glaucoma Denies: Hx Hearing Aid Opthamlomology History: Reports: Hx Cataracts - JONO, Hx Contacts or Glasses - GLASSES, Hx Glaucoma Neurological History: Reports: Hx Migraine - IN THE PAST Denies: Other Neuro Impairments/Disorders - Surgical History Surgery Procedure, Year, and Place: benign cardiac tumor 1998, exploratory left lung 1997,benign mass neck, right hip and right leg fx. pacemaker, Hx Anesthesia Reactions: Yes - WENT INTO CHF DURING SURGERY Infectious Disease History: No Infectious Disease History: Denies: Traveled Outside the [place] in Last 30 Days - Family History Known Family History: Positive: Other - neg: malignant hyperthermia - Social History Occupation: Retired Lives: With Family Alcohol Use: Daily Alcohol Amount: 4 BEERS PER DAY Hx Substance Use: No Substance Use Type: Reports: None Hx Tobacco Use: Yes Smoking Status (MU): Former Smoker Amount Used/How Often: 2-3 PACKS A DAY Have You Smoked in the Last Year: No Review of Systems Negative: Skin Diaphoresis Positive: Chest Pain, Other - pos: high BP Negative: Nausea Negative: Edema All Other Systems Reviewed And Are Negative: Yes Physical Exam Triage Information Reviewed: Yes Vital Signs On Initial Exam: Initial Vitals Temp Pulse Resp BP Pulse Ox 97.6 F 60 18 157/66 100 09/02/16 16:48 09/02/16 16:48 09/02/16 16:48 09/02/16 16:48 09/02/16 16:48 Vital Signs Reviewed: Yes Appearance: Positive: Well-Appearing, No Pain Distress Skin: Positive: Warm, Skin Color Reflects Adequate Perfusion, Dry Head/Face: Positive: Normal Head/Face Inspection Eyes: Positive: EOMI, SHEFALI, Other: - BILAT BLOODSHOT EYES ENT: Positive: Normal ENT inspection Neck: Positive: Supple, Nontender Respiratory/Lung Sounds: Positive: Clear to Auscultation, Breath Sounds Present Cardiovascular: Positive: RRR Musculoskeletal: Positive: Normal, Strength/ROM Intact Neurological: Positive: Normal, Sensory/Motor Intact, Alert, Oriented to Person Place, Time Psychiatric: Positive: Affect/Mood Appropriate Diagnostics - Vital Signs Vital Signs Temp Pulse Resp BP Pulse Ox 09/02/16 17:20 97.7 F 60 16 145/63 97 09/02/16 16:48 97.6 F 60 18 157/66 100 - Laboratory Lab Results: Lab Results 0509/02/16 09/02/16 Range/Units 17:30 17:30 17:30 INR (Anticoag Therapy) 2.29 H (0.89-1.11) APTT 34.8 (26.0-36.3) seconds D-Dimer, Quantitative < 200 (Less Than 230) ng/mL Sodium 138 (133-145) mmol/L Potassium TNP Chloride 101 (101-111) mmol/L Carbon Dioxide 30 (22-32) mmol/L Anion Gap TNP BUN 18 (6-24) mg/dL Creatinine 1.33 H (0.67-1.17) mg/dL Est GFR ( Amer) 68.0 (>60) Est GFR (Non-Af Amer) 52.9 (>60) BUN/Creatinine Ratio 13.5 (8-20) Glucose 94 (70-100) mg/dL Lactic Acid 0.8 (0.5-2.0) mmol/L Calcium 10.1 (8.6-10.3) mg/dL Magnesium TNP Total Bilirubin 1.30 H (0.2-1.0) mg/dL AST TNP ALT 20 (7-52) U/L Alkaline Phosphatase 76 (34-104) U/L Total Creatine Kinase 70 (10-223) U/L CK-MB (CK-2) 2.3 (0.6-6.3) ng/mL Troponin I 0.01 (<0.04) ng/mL C-Reactive Protein 21.72 H (< 5.00) mg/L B-Natriuretic Peptide ( - 100) pg/mL Total Protein 8.7 (6.4-8.9) g/dL Albumin 4.9 (3.2-5.2) g/dL Globulin 3.8 (2-4) g/dL Albumin/Globulin Ratio 1.3 (1-3) Lipase 247 H (11.0-82.0) U/L TSH 2.25 (0.34-5.60) mcIU/mL 09/02/16 Range/Units 17:30 INR (Anticoag Therapy) (0.89-1.11) APTT (26.0-36.3) seconds D-Dimer, Quantitative (Less Than 230) ng/mL Sodium (133-145) mmol/L Potassium Chloride (101-111) mmol/L Carbon Dioxide (22-32) mmol/L Anion Gap BUN (6-24) mg/dL Creatinine (0.67-1.17) mg/dL Est GFR ( Amer) (>60) Est GFR (Non-Af Amer) (>60) BUN/Creatinine Ratio (8-20) Glucose (70-100) mg/dL Lactic Acid (0.5-2.0) mmol/L Calcium (8.6-10.3) mg/dL Magnesium Total Bilirubin (0.2-1.0) mg/dL AST ALT (7-52) U/L Alkaline Phosphatase (34-104) U/L Total Creatine Kinase (10-223) U/L CK-MB (CK-2) (0.6-6.3) ng/mL Troponin I (<0.04) ng/mL C-Reactive Protein (< 5.00) mg/L B-Natriuretic Peptide 55 ( - 100) pg/mL Total Protein (6.4-8.9) g/dL Albumin (3.2-5.2) g/dL Globulin (2-4) g/dL Albumin/Globulin Ratio (1-3) Lipase (11.0-82.0) U/L TSH (0.34-5.60) mcIU/mL Result Diagrams: 09/02/16 18:30 09/02/16 18:30 Lab Statement: Any lab studies that have been ordered have been reviewed, and results considered in the medical decision making process. Chest Pain Course/Dx - Course Course Of Treatment: Pt is a 71 y/o M presenting with intermittent, acute on chronic chest pressure/pain onset approx 6 months ago. Pt was see by Dr. Jayme REY who recommended he go to ED. Denies nausea, diaphoresis, pedal edema. Episodes only last approx 10 secs, and he rates the pain as 10 out of 10 when occurring. Aggravating factors: movement, activity. Pacemaker. Last stress test was in Mar 2016. Pt on Warfarin. NO CRITICAL CARE TIME. Pt given fluids in ED. Lab resulsts show: INR is 2.29, CRP is 21.27, Ddimer and BNP are WNL. Trop is 0.01. Consulted with hospitalist, will admit. - Diagnoses Provider Diagnoses: Chest pain - Provider Notifications Discussed Care Of Patient With: Dr. Akers, hospitalist Time Discussed With Above Provider: 18:06 Instructed by Provider To: Admit As Inpatient Discharge - Discharge Plan Condition: Stable Disposition: ADMITTED TO [facility] The documentation as recorded by the Fernando crawford SooYoung accurately reflects the service I personally performed and the decisions made by me, Tom Bronson MD.
== END 2016-09-03 15:40 | disposition home or self-care (01) ==
LOC: ED 16:41 → MEDTELE 18:10
PROVIDERS: ADMIT Internal Medicine; ATTEND Internal Medicine
DX: R07.89 Other chest pain (principal); I48.91 Unspecified atrial fibrillation; Z79.01 Long term (current) use of anticoagulants; Q60.0 Renal agenesis, unilateral; Z79.899 Other long term (current) drug therapy; I11.0 Hypertensive heart disease with heart failure; I50.9 Heart failure, unspecified; K21.9 Gastro-esophageal reflux disease without esophagitis; Z95.0 Presence of cardiac pacemaker; Z85.3 Personal history of malignant neoplasm of breast; Z87.891 Personal history of nicotine dependence; R94.31 Abnormal electrocardiogram [ECG] [EKG]
CPT/HCPCS: 36415; 71010; 71270; 80053; 81003; 81015; 82550; 82553; 83605; 83690; 83735; 83880; 84443; 84484; 85025; 85379; 85610; 85730; 86140; 93005; 93312; 93325; 96360; 96361; 99284; A9270-GY; G0378; J2250; J2310; J3010; Q9967